=== PATIENT | male | born 1995 | race Caucasian/White ===

== ENCOUNTER 2016-09-26 11:18 | Emergency (ER) | payer SELFPAY ==
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
== END 2016-09-26 11:22 | disposition home or self-care (01) ==
LOC: CFTX 11:18
DX: S01.81XA Laceration without foreign body of other part of head, initial encounter (principal); Y09 Assault by unspecified means; Y92.410 Unspecified street and highway as the place of occurrence of the external cause
CPT/HCPCS: 12011; 70450; 70486; 72125; 99284